=== PATIENT | male | born 1925 | race Caucasian/White ===

== ENCOUNTER 2017-02-25 18:55 | Inpatient (IN) ==
--- NOTE | 2017-02-25 19:03 | Emergency Department Note ---
Disposition Clinical Impression: Right facial numbness, Facial droop, Transient ischemic attack (TIA) Disposition: Admitted As Inpatient Condition: Fair General Adult HPI - General Chief complaint: ED Neuro Symptoms/Deficit Stated complaint: "stroke-like symptoms" - Related Data Home Medications Medication Instructions Recorded Confirmed Aspirin Enteric Coated [Aspirin EC] 81 mg PO DAILY 02/25/17 02/25/17 Atorvastatin Calcium [Lipitor] 20 mg PO HS 02/25/17 02/25/17 Clopidogrel [Plavix] 75 mg PO DAILY 02/25/17 02/25/17 Furosemide [Lasix] 20 mg PO DAILY 02/25/17 02/25/17 Lactose-Reduced Food [Ensure Plus] 1 bottle PO DAILY 02/25/17 02/25/17 Lisinopril [Zestril] 5 mg PO BID 02/25/17 02/25/17 Metoprolol XL (24 HR) Succ [Toprol 25 mg PO BID 02/25/17 02/25/17 XL] Allergies Allergy/AdvReac Type Severity Reaction Status Date / Time No Known Allergies Allergy Verified 02/25/17 19:06 Course Vital Signs Pulse Rate 64 02/25/17 18:57 Respiratory Rate 18 02/25/17 18:57 Blood Pressure 136/83 02/25/17 18:57 O2 Sat by Pulse Oximetry 95 02/25/17 18:57 Temperature 98.0 F 02/27/17 06:19 Pulse Rate 80 02/27/17 06:19 Respiratory Rate 16 02/27/17 06:19 Blood Pressure 162/93 02/27/17 07:07 O2 Sat by Pulse Oximetry 95 02/27/17 06:19 Oxygen Delivery Oxygen Delivery Nasal Cannula Medical Decision Making - Lab Data Result diagrams: 02/27/17 03:00 02/27/17 03:00 Lab Results 02/25/17 02/25/17 02/25/17 Range/Units 19:34 19:34 19:34 WBC 6.7 (4.3-11.1) K/mcL RBC 3.79 L (4.19-5.50) M/mcL Hgb 10.4 L (12.9-16.9) g/dL Hct 33.3 L (37.5-50.1) % MCV 87.9 (83.0-100.0) fL MCH 27.4 L (28.0-33.3) pg MCHC 31.2 L (31.6-35.5) g/dL RDW 14.6 H (11.5-14.5) % Plt Count 176 (140-400) K/mcL MPV 9.5 (9.4-12.4) fL Immature Gran % 0.6 (0-4) % Seg Neutrophils % 63.0 % Lymphocytes % 23.9 % Monocytes % 8.7 % Eosinophils % 3.5 % Basophils % 0.3 % Neutrophils # 4.2 (1.6-8.9) K/mcL Lymphocytes # 1.6 (0.6-4.6) K/mcL Monocytes # 0.6 (0.0-1.3) K/mcL Eosinophils # 0.2 (0.0-0.6) K/mcL Basophils # 0.0 (0.0-0.2) K/mcL PT 12.0 (9.4-12.1) Seconds INR 1.1 APTT 30.1 (26.0-36.0) Seconds Sodium 138 (136-145) mEq/L Potassium 4.1 (3.5-4.5) mEq/L Chloride 101 (98-109) mEq/L Carbon Dioxide 32 H (19-29) mEq/L BUN 17 (8-26) mg/dL Creatinine 1.21 (0.72-1.25) mg/dL Est GFR ( Amer) > 60 (> 60) Est GFR (Non-Af Amer) 56 L (> 60) BUN/Creatinine Ratio 14 (6-26) Glucose 97 (70-99) mg/dL Calculated Osmolality 287 (280-300) Calcium 9.2 (8.6-10.8) mg/dL Troponin I (0-0.03) ng/mL 02/25/17 Range/Units 19:34 WBC (4.3-11.1) K/mcL RBC (4.19-5.50) M/mcL Hgb (12.9-16.9) g/dL Hct (37.5-50.1) % MCV (83.0-100.0) fL MCH (28.0-33.3) pg MCHC (31.6-35.5) g/dL RDW (11.5-14.5) % Plt Count (140-400) K/mcL MPV (9.4-12.4) fL Immature Gran % (0-4) % Seg Neutrophils % % Lymphocytes % % Monocytes % % Eosinophils % % Basophils % % Neutrophils # (1.6-8.9) K/mcL Lymphocytes # (0.6-4.6) K/mcL Monocytes # (0.0-1.3) K/mcL Eosinophils # (0.0-0.6) K/mcL Basophils # (0.0-0.2) K/mcL PT (9.4-12.1) Seconds INR APTT (26.0-36.0) Seconds Sodium (136-145) mEq/L Potassium (3.5-4.5) mEq/L Chloride (98-109) mEq/L Carbon Dioxide (19-29) mEq/L BUN (8-26) mg/dL Creatinine (0.72-1.25) mg/dL Est GFR ( Amer) (> 60) Est GFR (Non-Af Amer) (> 60) BUN/Creatinine Ratio (6-26) Glucose (70-99) mg/dL Calculated Osmolality (280-300) Calcium (8.6-10.8) mg/dL Troponin I 0.01 (0-0.03) ng/mL Attestation Statement - Attestation Attestation: I examined this patient and my medical decision-making was reviewed with the Resident Physician. I agree with the documented findings, disposition and treatment plan as described except to the extent set forth below. [id number] time provided Patient presents as a transfer from the [facility]. Symptoms started approximately 90 minutes ago and have now resolved over the past 30 minutes. He denies any active symptoms. We will work this patient up for a stroke but a stroke alert was not activated due to lack of symptoms. The patient appears in no acute distress on exam
--- NOTE | 2017-02-25 19:05 | Emergency Department Note ---
Disposition Clinical Impression: Right facial numbness, Facial droop Transient ischemic attack (TIA) Qualifiers: Transient cerebral ischemia type: unspecified Qualified Code(s): G45.9 - Transient cerebral ischemic attack, unspecified Disposition: Admitted As Inpatient Condition: Fair Time of Disposition: 20:25 Neuro HPI - General Chief Complaint: ED Neuro Symptoms/Deficit Stated Complaint: "stroke-like symptoms" Time Seen by Provider: 02/25/17 19:00 Source: patient, EMS Mode of arrival: EMS Limitations: no limitations Nursing Notes Reviewed: Yes Vital Signs Reviewed: Yes - History of Present Illness HPI Narrative: 89-year-old male with history of hypertension, hyperlipidemia and CVA several years ago without any sequela presents to the ED via EMS as a transfer from the [place] urgent care concern of stroke. Last well-known 1730 by daughter. He presented to the CT urgent care at 1800 with right eye drooping and slurred speech. On arrival patient appears in no acute distress. He is alert and oriented to person place and time. No facial droop is noticed. Per EMS symptoms resolved when they arrived to the CT for transport. This was roughly at 1830. Spoke to the patient he agrees, complete resolution of symptoms. Denies any headache, chest pain, shortness of breath or any weakness. His speech is fluent without any dysarthria. He is able to smile without any noticeable droop. Strength is equal bilaterally. Sensation intact. Stroke workup initiated. Daughter is at bedside. She provides further history. He was recently admitted to the CT for nausea and vomiting. He was discharged yesterday in return today. She states she was here at [facility] in the emergency department for her daughter. When she got home she noticed the patient had a right eye droop and was slurring his speech. She states his symptoms have resolved since then. She confirms the last well-known was roughly 1700 to 1730. He had a history of a mini stroke 23 years ago. In August 2016 he had a heart attack and was transferred to [place] but no stents were placed. He continues to take a baby aspirin as well as clopidgrel. Denies any recent travel or camping. Onset of Symptoms Date: 02/25/17 Onset of Symptoms Time: 17:30 Symptom Onset Unknown: No Timing confirmed by: family member (Daughter) Location: speech, right face - Related Data Home Medications: Home Medications Medication Instructions Recorded Confirmed Aspirin Enteric Coated [Aspirin EC] 81 mg PO DAILY 02/25/17 02/25/17 Atorvastatin Calcium [Lipitor] 20 mg PO HS 02/25/17 02/25/17 Clopidogrel [Plavix] 75 mg PO DAILY 02/25/17 02/25/17 Furosemide [Lasix] 20 mg PO DAILY 02/25/17 02/25/17 Lactose-Reduced Food [Ensure Plus] 1 bottle PO DAILY 02/25/17 02/25/17 Lisinopril [Zestril] 5 mg PO BID 02/25/17 02/25/17 Metoprolol XL (24 HR) Succ [Toprol 25 mg PO BID 02/25/17 02/25/17 XL] Allergies/Adverse Reactions: Allergies Allergy/AdvReac Type Severity Reaction Status Date / Time No Known Allergies Allergy Verified 02/25/17 19:06 All systems ED: reviewed and negative except as stated. Review of Systems: As Per HPI Constitutional: Denies: fever, chills Eyes: Denies: eye discharge, vision change Cardiovascular: Denies: chest pain Respiratory: Denies: cough, dyspnea Gastrointestinal: Denies: abdominal pain, nausea, vomiting Genitourinary: Denies: urgency, dysuria Musculoskeletal: Denies: back pain, neck pain Neurological: Denies: headache, confusion Past Medical History - Past Medical History Attestation: Yes The following information was validated with the patient. Source: obtained from family Medical history: Reports: CVA, hypertension, myocardial infarction Physical Exam - General Limitations: no limitations General appearance: alert, in no apparent distress - Head Head exam: atraumatic, normocephalic, normal inspection - Eye Eye exam: Present: normal appearance, PERRL, EOMI - ENT ENT exam: normal exam, normal oropharynx, mucous membranes moist - Neck Neck exam: Present: normal inspection, full ROM, trachea midline. Absent: tenderness - Chest Chest inspection: Present: normal inspection, symmetric chest wall rise, other ( NODULE ON ANTERIOR CHEST ABOVE STERNAL NOTCH) - Respiratory Respiratory exam: Present: normal lung sounds bilaterally. Absent: respiratory distress - Cardiovascular Cardiovascular exam: Present: regular rate, normal rhythm, normal heart sounds - Abdominal Exam Abdominal exam: Present: soft, Non-Tender, normal bowel sounds. Absent: tenderness, distention, guarding, rebound, rigidity - Extremities Exam Extremities exam: Present: normal inspection, full ROM. Absent: tenderness, pedal edema - Neurological Exam Neurological exam: Present: alert, oriented X3, CN II-XII intact - Expanded Neurological Exam Patient oriented to: Present: person, place, time Speech: Present: fluid speech Cranial nerves: EOM function (II, III, IV, ): Normal, facial sensation (V): Normal, facial palsy (VII): Normal, gag reflex (IX): Normal, spinal accessory function (XI): Normal, tongue deviation (XII): Normal Motor strength - LUE: 5/5 Motor strength - RUE: 5/5 Motor strength - LLE: 5/5 Motor strength - RLE: 5/5 Upper motor neuron exam: zaki neglect: Absent bilaterally, pronator drift: Absent bilaterally Sensory exam upper extremity: light touch: Normal Sensory exam lower extremity: light touch: Normal - Psychiatric Psychiatric exam: Present: normal affect, normal mood - Skin Skin exam: Present: warm, dry, intact, normal color Course - Reevaluation(s) Reevaluation #1: No dysarthria. No facial droop notice. Good symmetrical nasolabial folds. 5 of 5 strength equal bilaterally. Neurologic exam is normal without any focal neural deficits. CT of the head does not show hemorrhage. His labs or otherwise unremarkable. He took a baby aspirin this morning. Full resolution of his symptoms. We will have him admitted for transient ischemic attack and further evaluation. Patient and family are in agreement with this plan. - Consultations Consultation #1: Spoke with on-call hospitalist bora Rob to admit for TIA, resolved slurred speech and facial droop. No further orders at this time Time: 20:25 Vital Signs Pulse Rate 64 02/25/17 18:57 Respiratory Rate 18 02/25/17 18:57 Blood Pressure 136/83 02/25/17 18:57 O2 Sat by Pulse Oximetry 95 02/25/17 18:57 Temperature 97.7 F 02/25/17 19:06 Pulse Rate 65 02/25/17 19:57 Respiratory Rate 16 02/25/17 19:57 Blood Pressure 159/96 02/25/17 19:57 O2 Sat by Pulse Oximetry 97 02/25/17 19:57 Oxygen Delivery Oxygen Delivery Room Air Neuro Symptoms/Deficit - Medical Records Medical records reviewed: Yes I reviewed the patient's medical records. - Lab Data Lab results reviewed: Yes I reviewed the patient's lab results. Result diagrams: 02/25/17 19:34 02/25/17 19:34 Lab Results 02/25/17 02/25/17 02/25/17 Range/Units 19:34 19:34 19:34 WBC 6.7 (4.3-11.1) K/mcL RBC 3.79 L (4.19-5.50) M/mcL Hgb 10.4 L (12.9-16.9) g/dL Hct 33.3 L (37.5-50.1) % MCV 87.9 (83.0-100.0) fL MCH 27.4 L (28.0-33.3) pg MCHC 31.2 L (31.6-35.5) g/dL RDW 14.6 H (11.5-14.5) % Plt Count 176 (140-400) K/mcL MPV 9.5 (9.4-12.4) fL Immature Gran % 0.6 (0-4) % Seg Neutrophils % 63.0 % Lymphocytes % 23.9 % Monocytes % 8.7 % Eosinophils % 3.5 % Basophils % 0.3 % Neutrophils # 4.2 (1.6-8.9) K/mcL Lymphocytes # 1.6 (0.6-4.6) K/mcL Monocytes # 0.6 (0.0-1.3) K/mcL Eosinophils # 0.2 (0.0-0.6) K/mcL Basophils # 0.0 (0.0-0.2) K/mcL PT 12.0 (9.4-12.1) Seconds INR 1.1 APTT 30.1 (26.0-36.0) Seconds Sodium 138 (136-145) mEq/L Potassium 4.1 (3.5-4.5) mEq/L Chloride 101 (98-109) mEq/L Carbon Dioxide 32 H (19-29) mEq/L BUN 17 (8-26) mg/dL Creatinine 1.21 (0.72-1.25) mg/dL Est GFR ( Amer) > 60 (> 60) Est GFR (Non-Af Amer) 56 L (> 60) BUN/Creatinine Ratio 14 (6-26) Glucose 97 (70-99) mg/dL Calculated Osmolality 287 (280-300) Calcium 9.2 (8.6-10.8) mg/dL Troponin I (0-0.03) ng/mL 02/25/17 Range/Units 19:34 WBC (4.3-11.1) K/mcL RBC (4.19-5.50) M/mcL Hgb (12.9-16.9) g/dL Hct (37.5-50.1) % MCV (83.0-100.0) fL MCH (28.0-33.3) pg MCHC (31.6-35.5) g/dL RDW (11.5-14.5) % Plt Count (140-400) K/mcL MPV (9.4-12.4) fL Immature Gran % (0-4) % Seg Neutrophils % % Lymphocytes % % Monocytes % % Eosinophils % % Basophils % % Neutrophils # (1.6-8.9) K/mcL Lymphocytes # (0.6-4.6) K/mcL Monocytes # (0.0-1.3) K/mcL Eosinophils # (0.0-0.6) K/mcL Basophils # (0.0-0.2) K/mcL PT (9.4-12.1) Seconds INR APTT (26.0-36.0) Seconds Sodium (136-145) mEq/L Potassium (3.5-4.5) mEq/L Chloride (98-109) mEq/L Carbon Dioxide (19-29) mEq/L BUN (8-26) mg/dL Creatinine (0.72-1.25) mg/dL Est GFR ( Amer) (> 60) Est GFR (Non-Af Amer) (> 60) BUN/Creatinine Ratio (6-26) Glucose (70-99) mg/dL Calculated Osmolality (280-300) Calcium (8.6-10.8) mg/dL Troponin I 0.01 (0-0.03) ng/mL - Radiology Data Radiology results reviewed: Yes I reviewed the patient's radiology results. Head CT 02/25/17 19:03 IMPRESSION: No acute intracranial abnormality. D/ / Fozia Rodriguez Cha, MD / Fozia Rodriguez Cha, MD Interpreting Provider: Fozia Rodriguez Cha, MD - EKG Data EKG attestation: Yes I reviewed and interpreted this EKG. EKG results narrative: EKG performed 1905 sinus rhythm with PVC [address] elevations or depression, Q waves in V1/2 and T wave inversion in the lateral leads. Intervals are within normal limits. Compared to prior EKG performed 12/13/2010 which shows sinus rhythm with a left axis deviation. Compared to a EKG performed at the CT 02/25/2017 at 1748 shows sinus bradycardia with similar T wave inversion. There are no acute ischemic changes from this. TPA Checklist - LKW: 3-4.5 hrs Add. Warnings/Precautions Patient/family understanding: The patient/family members have been counseled and understood the risk, benefit , and alternatives of treatment.
[2017-02-25 19:41] LABS: Basophils % 0.3 %; Eosinophils # 0.2 K/mcL (0.0-0.6); Eosinophils % 3.5 %; Hematocrit 33.3 % (37.5-50.1); Hemoglobin 10.4 g/dL (12.9-16.9); Immature Granulocytes % 0.6 % (0-4); Lymphocytes # 1.6 K/mcL (0.6-4.6); Lymphocytes % 23.9 %; Mean Corpuscular HGB Conc 31.2 g/dL (31.6-35.5); Mean Corpuscular Hemoglobin 27.4 pg (28.0-33.3); Mean Corpuscular Volume 87.9 fL (83.0-100.0); Mean Platelet Volume 9.5 fL (9.4-12.4); Monocytes # 0.6 K/mcL (0.0-1.3); Monocytes % 8.7 %; Neutrophils # 4.2 K/mcL (1.6-8.9); Platelet Count 176 K/mcL (140-400); Red Blood Count 3.79 M/mcL (4.19-5.50); Red Cell Distribution Width 14.6 % (11.5-14.5)
[2017-02-25 19:53] LABS: BUN/Creatinine Ratio 14 (6-26); Blood Urea Nitrogen 17 mg/dL (8-26); Calcium 9.2 mg/dL (8.6-10.8); Carbon Dioxide 32 mEq/L (19-29); Chloride 101 mEq/L (98-109); Glucose 97 mg/dL (70-99); Osmolality,Calculated 287 (280-300); Potassium 4.1 mEq/L (3.5-4.5); Sodium 138 mEq/L (136-145); eGFR For African Americans > 60 (> 60); eGFR For Non-African Americans 56 (> 60)
[2017-02-25 20:02] LABS: INR 1.1
[2017-02-25 20:05] LABS: Activated Partial Thrombo Time 30.1 Seconds (26.0-36.0)
[2017-02-25] MEDS ORDERED: Acetaminophen 325 MG TABLET PO PRN (20:58)
[2017-02-25] MEDS ORDERED: Naloxone 0.4 MG/ML INJ IVP PRN (20:58)
[2017-02-25] MEDS ORDERED: Metoprolol XL (24 HR) Succ 25 MG TAB.ER.24H PO SCH (21:00)
--- NOTE | 2017-02-25 21:18 | Internal Med History&Physical ---
<Renteria,Jada J - Last Filed: 02/25/17 21:19> Date of Encounter: 02/25/17 Time of Encounter: 21:13 Assessment and Plan (1) Transient ischemic attack (TIA) Current visit: Yes Status: Acute suspected. HX remote CVA with no residual effects. Now with slurred speech and right facial droop on day o admission. Head CT negative. Sx's improved but present on admission.Brain MRI, carotids, echo, lipid panel, Hgb A1c pending. Cont home ASA, plavix. Consult Neurology if needed Qualifiers: Transient cerebral ischemia type: unspecified Qualified Code(s): G45.9 - Transient cerebral ischemic attack, unspecified (2) CAD (coronary artery disease) Current visit: Yes Status: Acute hx [place] 07/2016, no stents. Asymptomatic, denies CP. Cont home ASA, Plavix, statin , BB Qualifiers: Coronary Disease-Associated Artery/Lesion type: torres martinez artery [place] vs. transplanted heart: torres martinez heart Associated angina: without angina Qualified Code(s): I25.10 - Atherosclerotic heart disease of torres martinez coronary artery without angina pectoris (3) Essential hypertension Current visit: Yes Status: Acute per hx. BP variable but controlled. Cont home BP medications. Monitor BP and titrate PRN (4) DVT prophylaxis Current visit: Yes Status: Acute [facility] Internal Medicine - H&P: HPI Chief complaint: right eye droop and slurred speech Admitted From: Home Plans for Post Hospital Care: Home History of present illness: Mr. Adame is a 89 year old male with PMH CAD, HTN and remote CVA who presented to [facility] on 02/25/2017 from [place] with concern for CVA. He was admitted for further work-up and treatment. Information obtained from chart review and patient report. Daughter not at bedside. Per chart review, the daughter noticed noticed the patient had a right eye droop and was slurring his speech; sx's started around 1730. Sx's improved prior to arrival. On my exam, the patient reports "a little blurred vision" and feel right side of face doesn't feel right. No headache, no numbness/tingling. No CP, no SOB Past Med Surg Social Fam HX - Past Medical History Medical history: CVA, hypertension, myocardial infarction Psychiatric history: anxiety - Social History Smoking Status: Former smoker Smokeless Tobacco Status: No Alcohol use: none Drug use: none Internal Medicine - H&P: Meds Aspirin Enteric Coated [Aspirin EC] 81 mg PO DAILY 02/25/17 [History] Atorvastatin Calcium [Lipitor] 20 mg PO HS 02/25/17 [History] Clopidogrel [Plavix] 75 mg PO DAILY 02/25/17 [History] Furosemide [Lasix] 20 mg PO DAILY 02/25/17 [History] Lactose-Reduced Food [Ensure Plus] 1 bottle PO DAILY 02/25/17 [History] Lisinopril [Zestril] 5 mg PO BID 02/25/17 [History] Metoprolol XL (24 HR) Succ [Toprol XL] 25 mg PO BID 02/25/17 [History] Allergies No Known Allergies Allergy (Verified 02/25/17 19:06) All Systems PM: A 10-system review of systems was performed and is negative for pertinent findings except as documented above in the HPI. - Constitutional Constitutional: no chills, no fever(s), no night sweats - EENT Eyes: blurry vision, no change in vision, no discharge, no pain, no photophobia Ears: no ear discharge, no ear pain, no tinnitus Nose, mouth and throat: no dysphagia, no nasal discharge, no neck pain, no sore throat - Cardiovascular Cardiovascular ROS IM: no chest pain, no diaphoresis, no dyspnea, no lightheadedness, no palpitations, no syncope - Respiratory Respiratory: no cough, no dyspnea, no wheezing, no excessive phlegm production - Gastrointestinal Gastrointestinal: no abdominal pain, no diarrhea, no hematemesis, no hematochezia, no melena, no nausea, no vomiting - Musculoskeletal Musculoskeletal ROS IM: no numbness, no tingling - Integumentary Integumentary IM: no rash, no unusual bruising - Neurological Neurological ROS: abnormal speech, dizziness, no confusion, no convulsions, no focal weakness, no numbness, no tingling, no tremor(s) - Hematologic/Lymphatic Hematologic/Lymphatic: no easy bruising - Constitutional Vitals: Temp Pulse Resp BP Pulse Ox 97.7 F 68 18 163/62 97 02/25/17 19:06 02/25/17 19:48 02/25/17 19:48 02/25/17 19:48 02/25/17 19:48 General appearance: Present: A&O X 3, no acute distress - Head Head exam: Present: atraumatic, normocephalic - Eye Eye exam: Present: PERRL, conjuntiva pink, sclera anicteric Pupils: Present: PERRL - Neck Neck exam general surgery: Present: supple, trachea midline. Absent: lymphadenopathy - Respiratory Respiratory exam: Present: CTAB. Absent: accessory muscle use, rales, rhonchi, wheezes - Cardiovascular Cardiovascular exam: Present: RRR, +S1, +S2. Absent: diastolic murmur, gallop, rubs, systolic murmur - GI/Abdominal GI/Abdominal exam: Present: normal bowel sounds, soft, no peritoneal signs. Absent: distended, tenderness - Extremities Exam Extremities exam: Present: warm, radial pulses palpable and symetrical. Absent : calf tenderness, cyanotic, pedal edema - Neurological Exam Neurological exam: Present: CN II-XII intact, oriented X3, no focal deficits, facial droop. Absent: pronater drift, speech deficit Additional comments: right facial droop - Skin Skin exam: Present: dry, intact Internal Med - H&P Results - Labs CBC & Chem 7: 02/25/17 19:34 02/25/17 19:34 Labs: Short CBC 02/25/17 Range/Units 19:34 WBC 6.7 (4.3-11.1) K/mcL Hgb 10.4 L (12.9-16.9) g/dL Hct 33.3 L (37.5-50.1) % Plt Count 176 (140-400) K/mcL Neutrophils # 4.2 (1.6-8.9) K/mcL BMP 02/25/17 19:34 Sodium 138 Potassium 4.1 Chloride 101 Carbon Dioxide 32 H BUN 17 Creatinine 1.21 Glucose 97 Calcium 9.2 Cardiac Enzymes 02/25/17 Range/Units 19:34 Troponin I 0.01 (0-0.03) ng/mL - Impressions ITS Impressions Head CT 02/25/17 19:03 IMPRESSION: No acute intracranial abnormality. D/ / Fozia Rodriguez Cha, MD / Fozia Rodriguez Cha, MD Interpreting Provider: Fozia Rodriguez Cha, MD <Kaiser Steele - Last Filed: 02/26/17 03:39> Date of Encounter: 02/25/17 Internal Medicine - H&P: HPI History of present illness: Mr. Adame is a 89 year old male Past Med Surg Social Fam HX - Past Medical History Source: patient, old records reviewed - Past Surgical History Surgical History: hip replacement (right ) - Additional Family History Additional family history: patient was raised by his grandparents so he does not know of his parents medical conditions if any, he denies any family of stroke to his knowledge All Systems PM: A 10-system review of systems was performed and is negative for pertinent findings except as documented above in the HPI. - Constitutional Vitals: Temp Pulse Resp BP Pulse Ox 97.7 F 68 16 140/68 95 02/25/17 23:25 02/25/17 23:25 02/25/17 23:25 02/25/17 23:25 02/25/17 23:25 Internal Med - H&P Results - Labs CBC & Chem 7: 02/25/17 19:34 02/25/17 19:34 - Attending Attestation I personally interviewed and examined this patient and my medical decision- making was reviewed with the Advanced Nurse Practitioner. I agree with the documented findings, disposition and treatment plan as described. Kaiser Steele MD, MPH Hospitalist
[2017-02-26 03:53] LABS: Hematocrit 32.1 % (37.5-50.1); Hemoglobin 10.1 g/dL (12.9-16.9); Mean Corpuscular HGB Conc 31.5 g/dL (31.6-35.5); Mean Corpuscular Hemoglobin 27.4 pg (28.0-33.3); Platelet Count 165 K/mcL (140-400); Red Blood Count 3.69 M/mcL (4.19-5.50); Red Cell Distribution Width 14.5 % (11.5-14.5)
[2017-02-26 04:15] LABS: Alanine Aminotransferase 8 Units/L (0-55); Albumin/Globulin Ratio 0.9 (1.1-2.2); Alkaline Phosphatase 108 Units/L (38-126); Aspartate Amino Transferase 13 Units/L (5-34); BUN/Creatinine Ratio 13 (6-26); Bilirubin,Total 0.4 mg/dL (0.2-1.2); Blood Urea Nitrogen 16 mg/dL (8-26); Calcium 8.8 mg/dL (8.6-10.8); Carbon Dioxide 30 mEq/L (19-29); Chloride 104 mEq/L (98-109); Chol/HDL Ratio 2.7 (0-4.9); Cholesterol 122 mg/dL (< 200); Globulin 3.2 g/dL (2.4-3.5); Glucose 92 mg/dL (70-99); HDL Cholesterol 46 mg/dL (40-59); LDL Cholesterol,Calculated 66 mg/dL (0-99); Osmolality,Calculated 291 (280-300); Potassium 4.1 mEq/L (3.5-4.5); Sodium 140 mEq/L (136-145); Total Protein 6.2 g/dL (6.0-8.3); Triglycerides 52 mg/dL (< 150); eGFR For African Americans > 60 (> 60); eGFR For Non-African Americans 58 (> 60)
[2017-02-26] MEDS ORDERED: *HR* Enoxaparin 30 MG/0.3 ML SYRINGE SQ SCH (06:00)
[2017-02-26 06:01] LABS: Hemoglobin A1C 5.4 %
[2017-02-26] MEDS: Metoprolol XL (24 HR) Succ 25 MG TAB.ER.24H PO SCH (09:54)
[2017-02-26] MEDS: Furosemide 20 MG TABLET PO SCH (09:54)
[2017-02-26] MEDS: Aspirin Enteric Coated 81 MG Tablet PO SCH (09:54)
--- NOTE | 2017-02-26 16:11 | Neurology - Consult Note ---
Date of Encounter: 02/26/17 Time of Encounter: 16:07 Assessment and Plan (1) Brainstem infarct, acute Current Visit: Yes Status: Acute The MRI scan of the brain reveals an acute infarction in the right medulla. This is more than likely a small vessel event associated with his history of hypertension. I am not convinced that the right internal carotid artery stenosis which is 60-79% is at fault because he did not have symptoms localizing to the right cerebral hemisphere. The carotid Doppler study did not reveal some nonstenotic plaquing of the left common carotid artery at 40-59%. He states that he was not taking aspirin daily prior to this event. Echocardiogram reveals severe left ventricular hypertrophy. For completeness in his case I would simply advocate a CTA scan of the neck to be certain that the carotid Doppler study is accurate. Otherwise I would recommend statins, as well as antiplatelet therapy and strict management of his risk factors. History of Present Illness HPI: Mr. Adame is a 89 year old male with a prior known history of CVA hypertension and heart disease being seen for neurologic consultation secondary to symptoms of transient ischemic attack/stroke. Apparently this gentleman was thought in to the [facility] by his daughter as she was concerned of slurred speech old right facial droop. Patient states that he did not have weakness of the right arm but had a slight bit of weakness of the right leg and his balance was slightly off. He currently feels that the symptoms are completely resolved. He has had several tests since admission including an MRI scan of the brain revealed an acute right medullary infarct. It also revealed significant matter chronic ischemic change. He has also had a carotid Doppler revealed 60-79% stenosis of the right internal carotid artery, and possibly 40- 59% stenosis of the left common carotid artery. Echocardiogram reveals severe left ventricular hypertrophy and diastolic dysfunction. Patient currently sitting up in his bed watching television in no acute distress. Past Med Surg Social Fam HX - Past Medical History Medical history: CVA, hypertension, myocardial infarction Psychiatric history: anxiety - Past Surgical History Surgical History: hip replacement (right ) - Social History Smoking Status: Former smoker Smokeless Tobacco Status: No Alcohol use: none Drug use: none Medications and Allergies Aspirin Enteric Coated [Aspirin EC] 81 mg PO DAILY 02/25/17 [History] Atorvastatin Calcium [Lipitor] 20 mg PO HS 02/25/17 [History] Clopidogrel [Plavix] 75 mg PO DAILY 02/25/17 [History] Furosemide [Lasix] 20 mg PO DAILY 02/25/17 [History] Lactose-Reduced Food [Ensure Plus] 1 bottle PO DAILY 02/25/17 [History] Lisinopril [Zestril] 5 mg PO BID 02/25/17 [History] Metoprolol XL (24 HR) Succ [Toprol XL] 25 mg PO BID 02/25/17 [History] Allergies No Known Allergies Allergy (Verified 02/25/17 19:06) All Systems: A 10-system review of systems was performed and is negative for pertinent findings except as documented above in the HPI. Review of Systems: 10 point review of systems is consistent with a history of present illness and is otherwise negative. Physical Examination - Vital Signs Vital Signs: Initial Vital Signs Pulse Resp BP Pulse Ox 64 18 136/83 95 02/25/17 18:57 02/25/17 18:57 02/25/17 18:57 02/25/17 18:57 - Exam Exam: Neurologic examination finds the following. For cerebral functions he is awake and alert and oriented 1. He does have some motor impersistence, he does have a glabellar and hooking grasp frontal releasing signs. He is able to give a partial history however is not able to give exact details. He does fit the dementia profile. - Neurologic Detailed motor examination: full strength in all major muscle groups Detailed sensory examination: intact Reflex and gait examination: intact Reflexes: Biceps: 1+, Triceps: 1+, Brachioradialis: 1+, Patella: 0, Achilles: 0 Mental Status Examination: awake, alert, oriented to person, demented Cranial nerve examination: PERRL, EOMI, visual kwok intact, corneal reflexes brisk symmetrically, sensory to face intact, mastication intact, no facial asymmetry is present, no dysarthria, soft palate elevates bilaterally upon phonation, tongue protrudes midline Cerebellar examination: no dysmetria, performs finger to nose and heel to cooney symmetrically without ataxia, no gait ataxia, no truncal ataxia, no difficulty with rapid alternating movements Results - Laboratory Findings CBC and BMP: 02/26/17 03:09 02/26/17 03:09 Abnormal lab findings: Abnormal lab results RBC 3.69 M/mcL (4.19-5.50) L 02/26/17 03:09 Hgb 10.1 g/dL (12.9-16.9) L 02/26/17 03:09 Hct 32.1 % (37.5-50.1) L 02/26/17 03:09 MCH 27.4 pg (28.0-33.3) L 02/26/17 03:09 MCHC 31.5 g/dL (31.6-35.5) L 02/26/17 03:09 Carbon Dioxide 30 mEq/L (19-29) H 02/26/17 03:09 Est GFR (Non-Af Amer) 58 (> 60) L 02/26/17 03:09 Albumin 3.0 g/dL (3.5-5.0) L 02/26/17 03:09 Albumin/Globulin Ratio 0.9 (1.1-2.2) L 02/26/17 03:09 Consult Discharge Plan - Plan [facility]: [facility] [Primary Care Provider] -
--- NOTE | 2017-02-26 17:31 | Internal Med Progress Note ---
Date of Encounter: 02/26/17 Time of Encounter: 17:29 - Assessment and plan (1) CVA (cerebral vascular accident) Current Visit: Yes Status: Acute Qualifiers: Qualified Code(s): I63.9 - Cerebral infarction, unspecified (2) Essential hypertension Current Visit: Yes Status: Acute (3) DVT prophylaxis Current Visit: Yes Status: Acute - Subjective Interval history: Mr. Kalpesh Adame is an 89-year-old male presented with an acute onset right facial droop is difficulty and there right upper eyelid droop. His speech and facial droop has improved but still has drooping of right upper eyelid which I am not sure if it is new or old. In any case The MRI scan of the brain reveals an acute infarction in the right medulla. This is more than likely a small vessel event associated with his history of hypertension. Therefore patient is a started on aspirin as it seems like he does not take aspirin on a daily basis. Lipitor was also added. Ultrasound of carotids showed moderate narrowing of the right side in the range of 50-70% therefore CTA has been ordered. Neurology is following the patient. Echocardiogram showed good LV systolic function with EF above 55% LVH and diastolic dysfunction but no significant valvular abnormality. PTOT consulted. Once workup is complete patient will be discharged. Discussed the plan with family. - Constitutional Vitals: Temp Pulse Resp BP Pulse Ox 97.5 F L 70 29 150/66 98 02/26/17 15:52 02/26/17 15:54 02/26/17 15:54 02/26/17 15:54 02/26/17 15:52 General appearance: Present: A&O X 3, no acute distress - Head Head exam: Present: atraumatic, normocephalic - Eye Eye exam: Present: PERRL, conjuntiva pink, sclera anicteric Pupils: Present: PERRL - Neck Neck exam general surgery: Present: supple, trachea midline. Absent: lymphadenopathy - Respiratory Respiratory exam: Present: CTAB. Absent: accessory muscle use, rales, rhonchi, wheezes - Cardiovascular Cardiovascular exam: Present: RRR, +S1, +S2. Absent: diastolic murmur, gallop, rubs, systolic murmur - GI/Abdominal GI/Abdominal exam: Present: normal bowel sounds, soft, no peritoneal signs. Absent: distended, tenderness - Extremities Exam Extremities exam: Present: warm, radial pulses palpable and symetrical. Absent : calf tenderness, cyanotic, pedal edema - Neurological Exam Neurological exam: Present: CN II-XII intact, oriented X3, no focal deficits. Absent: pronater drift, facial droop, speech deficit Additional comments: Eyelid droop but otherwise no pronator drift and gait deferred - Skin Skin exam: Present: dry, intact Internal Medicine: Result - Labs CBC & Chem 7: 02/26/17 03:09 02/26/17 03:09 Labs: Short CBC 02/26/17 Range/Units 03:09 WBC 6.6 (4.3-11.1) K/mcL Hgb 10.1 L (12.9-16.9) g/dL Hct 32.1 L (37.5-50.1) % Plt Count 165 (140-400) K/mcL BMP 02/26/17 03:09 Sodium 140 Potassium 4.1 Chloride 104 Carbon Dioxide 30 H BUN 16 Creatinine 1.19 Glucose 92 Calcium 8.8 Liver Function 02/26/17 Range/Units 03:09 Total Bilirubin 0.4 (0.2-1.2) mg/dL AST 13 (5-34) Units/L ALT 8 (0-55) Units/L Alkaline Phosphatase 108 (38-126) Units/L Albumin 3.0 L (3.5-5.0) g/dL - ABG Interpretation ABG results: PT/INR, D-dimer PT 12.0 Seconds (9.4-12.1) 02/25/17 19:34 - Impressions Impressions Echocardiogram 02/26/17 21:00 Impressions: LVEF 50-55%. Mild left ventricular diastolic dysfunction with elevated filling pressures. Severe concentric left ventricular hypertrophy. Normal right ventricular size and function. Mild mitral regurgitation. Mild tricuspid regurgitation. No pulmonary hypertension. No PFO with saline contrast injection. Left Ventricular Wall Motion: Rest Echo Findings All wall segments showed normal motion. Findings: Study Quality * Technically adequate exam. ECG Findings * Sinus bradycardia. Left Ventricle * Severe concentric left ventricular hypertrophy. No LVOT obstruction. ROSY of the mitral valve is not appreciated. * Mild left ventricular diastolic dysfunction with elevated filling pressures. * LVEF 50-55%. Aorta * Normally sized aortic root. Aortic Valve * No aortic regurgitation. * Trileaflet aortic valve. * Mildly calcified aortic valve leaflets. * No aortic stenosis. Mitral Valve * Normal mitral valve structure. * No mitral stenosis. * Mild mitral regurgitation. Tricuspid Valve * Normal tricuspid valve structure. * Mild tricuspid regurgitation. * Estimated RA pressure is 8 mmHg. * Estimated RVSP is 32 mmHg. * No pulmonary hypertension. Pulmonic Valve * Pulmonic valve is not well visualized. * No pulmonic stenosis. * No pulmonic regurgitation. Pulmonary Artery * Pulmonary artery not well visualized. Right Ventricle * Normal right ventricular structure and function. Left Atrium * Normal left atrial size. Right Atrium * Normal right atrial size. Interatrial Septum * No evidence of PFO by color Doppler. * No evidence of PFO with agitated saline contrast. Pericardium * There is no pericardial effusion present. IVC * The IVC is not dilated. * < 50% respiratory change. Consult Discharge Plan - Plan [facility]errals: [facility] [Primary Care Provider] -
[2017-02-27 03:42] LABS: Basophils % 0.3 %; Eosinophils # 0.3 K/mcL (0.0-0.6); Eosinophils % 3.6 %; Hematocrit 31.1 % (37.5-50.1); Hemoglobin 9.9 g/dL (12.9-16.9); Immature Granulocytes % 0.4 % (0-4); Lymphocytes # 1.9 K/mcL (0.6-4.6); Mean Corpuscular HGB Conc 31.8 g/dL (31.6-35.5); Mean Corpuscular Hemoglobin 27.5 pg (28.0-33.3); Mean Corpuscular Volume 86.4 fL (83.0-100.0); Mean Platelet Volume 10.2 fL (9.4-12.4); Monocytes # 0.6 K/mcL (0.0-1.3); Monocytes % 8.9 %; Neutrophils # 4.4 K/mcL (1.6-8.9); Platelet Count 178 K/mcL (140-400); Red Cell Distribution Width 14.4 % (11.5-14.5); Segmented Neutrophils % 60.8 %
[2017-02-27 03:59] LABS: Alanine Aminotransferase 8 Units/L (0-55); Albumin 3.2 g/dL (3.5-5.0); Alkaline Phosphatase 112 Units/L (38-126); Aspartate Amino Transferase 13 Units/L (5-34); BUN/Creatinine Ratio 21 (6-26); Bilirubin,Total 0.4 mg/dL (0.2-1.2); Blood Urea Nitrogen 24 mg/dL (8-26); Carbon Dioxide 25 mEq/L (19-29); Chloride 102 mEq/L (98-109); Globulin 3.2 g/dL (2.4-3.5); Glucose 96 mg/dL (70-99); Osmolality,Calculated 288 (280-300); Potassium 3.9 mEq/L (3.5-4.5); Sodium 137 mEq/L (136-145); Total Protein 6.4 g/dL (6.0-8.3); eGFR For African Americans > 60 (> 60); eGFR For Non-African Americans > 60 (> 60)
[2017-02-27] MEDS ORDERED: *HR* Enoxaparin 40 MG/0.4 ML SYRINGE SQ SCH (06:00)
[2017-02-27] MEDS ORDERED: *HR* Labetalol 20 MG/4 ML SYRINGE IVP PRN (06:10)
--- NOTE | 2017-02-27 07:46 | Carotid Imaging Report ---
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 Findings: Left carotid system has nonstenotic plaque. Recommendations: After imaging the patient returned to their room. Test completed on 02/26/2017 at 9:10:00 am. Findings Carotid Duplex: Right: The right proximal common carotid artery has a PSV of 52 cm/s and a EDV of 14 cm/s. There is nonstenotic plaque in the right mid common carotid artery with a PSV of 85 cm/s and a EDV of 21 cm/s. There is irregular calcified plaque. There is nonstenotic plaque in the right distal common carotid artery with a PSV of 70 cm/s and a EDV of 14 cm/s. There is irregular calcified plaque. There is nonstenotic plaque in the right bifurcation with a PSV of 46 cm/s and a EDV of 14 cm/s. There is irregular calcified plaque. There is 60-79% stenosis in the right proximal internal carotid artery with a PSV of 184 cm/s and a EDV of 53 cm/s. There is irregular calcified plaque. The right mid internal carotid artery has a PSV of 107 cm/s and a EDV of 24 cm/s. The right distal internal carotid artery has a PSV of 71 cm/s and a EDV of 20 cm/s. The right eca has turbulent flow with plaque with a PSV of 214 cm/s and a EDV of 27 cm/s. There is highly irregular calcified plaque. The right vertebral artery has a PSV of 38 cm/s and a EDV of 10 cm/s. Left: The left proximal common carotid artery has a PSV of 92 cm/s and a EDV of 21 cm/s. There is 40-59% stenosis in the left mid common carotid artery with a PSV of 131 cm/s and a EDV of 18 cm/s. There is irregular calcified plaque. There is nonstenotic plaque in the left distal common carotid artery with a PSV of 78 cm/s and a EDV of 14 cm/s. There is irregular calcified plaque. There is 40-59% stenosis in the left bifurcation with a PSV of 131 cm/s and a EDV of 21 cm/s. There is highly irregular calcified plaque. There is nonstenotic plaque in the left proximal internal carotid artery with a PSV of 81 cm/s and a EDV of 23 cm/s. There is calcified plaque. The left mid internal carotid artery has a PSV of 75 cm/s and a EDV of 23 cm/s. The left distal internal carotid artery has a PSV of 73 cm/s and a EDV of 23 cm/s. The left eca has turbulent flow with plaque with a PSV of 165 cm/s. There is calcified plaque. The left vertebral artery has a PSV of 34 cm/s and a EDV of 6 cm/s. Prior Study: No prior study available for comparison. Carotid Results Right PSV EDV Assessment Proximal CCA 52 14 Mid CCA 85 21 Distal CCA 70 14 Bifurcation 46 14 Proximal ICA 184 53 Mid ICA 107 24 Distal ICA 71 20 ECA 214 27 Vertebral Artery 38 10 Left PSV EDV Assessment Proximal CCA 92 21 Mid CCA 131 18 Distal CCA 78 14 Bifurcation 131 21 Proximal ICA 81 23 Mid ICA 75 23 Distal ICA 73 23 ECA 165 0 Vertebral Artery 34 6 Ratio's Right ICA/CCA Ratio: 2.16 ICA/CCA Values: 184/85 Left ICA/CCA Ratio: 0.61 ICA/CCA Values: 81/131 Updated by Donnie Monroy MD, FACS on 02/26/2017 5:42:49 PM Donnie Monroy MD electronically signed on 02/26/2017 5:43:05 PM with status of Final
--- NOTE | 2017-02-27 07:48 | Electrocardiograph Report ---
[address] [place], [place] [address] Test Date: 2017-02-25 Pat Name: Kalpesh Adame Department: 102 Room: 2NE23 Gender: M Systems Lead: Am : 1925 Requested By: Roderick Boles Order Number: [id number] Reading MD: Tom Aldana MD Measurements Intervals [place] Rate: 65 P: 64 MI: 177 QRS: -7 QRSD: 109 T: 78 QT: 430 QTc: 441 Interpretive Statements SINUS RHYTHM WITH FREQUENT SUPRAVENTRICULAR PREMATURE COMPLEXES LEFT ATRIAL ENLARGEMENT INCOMPLETE RIGHT BUNDLE BRANCH BLOCK LATERAL ISCHEMIA Electronically Signed On 02-26-2017 19:50:01 EDT by Tom Aldana MD
[2017-02-27] MEDS: Furosemide 20 MG TABLET PO SCH (08:50)
[2017-02-27] MEDS: Aspirin Enteric Coated 81 MG Tablet PO SCH (08:50)
[2017-02-27] MEDS: Metoprolol XL (24 HR) Succ 25 MG TAB.ER.24H PO SCH (08:51)
--- NOTE | 2017-02-27 11:36 | Electrocardiograph Report ---
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
--- NOTE | 2017-02-27 15:58 | Discharge Summary ---
Date of Encounter: 02/27/17 Time of Encounter: 15:55 - Discharge Diagnosis (1) CVA (cerebral vascular accident) Priority: Primary Status: Acute Qualifiers: Qualified Code(s): I63.9 - Cerebral infarction, unspecified (2) Essential hypertension Priority: Secondary Status: Acute (3) DVT prophylaxis Priority: Secondary Status: Acute (4) Dyslipidemia Priority: Secondary Status: Acute - Discharge Medications Home Medications: Aspirin Enteric Coated [Aspirin EC] 81 mg PO DAILY 02/25/17 [History] Atorvastatin Calcium [Lipitor] 20 mg PO HS 02/25/17 [History] Clopidogrel [Plavix] 75 mg PO DAILY 02/25/17 [History] Furosemide [Lasix] 20 mg PO DAILY 02/25/17 [History] Lactose-Reduced Food [Ensure Plus] 1 bottle PO DAILY 02/25/17 [History] Lisinopril [Zestril] 5 mg PO BID 02/25/17 [History] Metoprolol XL (24 HR) Succ [Toprol Xl] 25 mg PO BID 02/25/17 [History] Acetaminophen [Tylenol] 650 mg PO Q6HR PRN tab 02/27/17 [Rx] Allergies/Adverse Reactions: Allergies No Known Allergies Allergy (Verified 02/25/17 19:06) Procedures/tests Complete & Pending: Procedures Performed prior 72 hours Category Date Time Status CT angio neck [CT] Routine Cat Scan 02/26/17 16:22 Completed ECG 12 lead ECG [ECG] Routine Y 02/25/17 19:05 Completed ECG 12 lead ECG [ECG] Routine Y 02/26/17 19:46 Completed Date of admission: 02/25/17 21:10 [facility] physician[facility] Consults: 02/26/17 03:40 Consult to Neurology [CONS] Routine Consulting Provider: Neurology [facility] Reason for Consult: pls assist in managing this pt with acute stroke, thanks Call Completed: No 02/26/17 11:29 Consult to Occupational Therapy [CONS] Routine Comment: Evaluate, develop and implement POC Reason for Consult: cva admit, asess home needs Consult to Physical Therapy [CONS] Routine Comment: Evaluate, develop and implement POC Reason for Consult: cva admission, assess home needs Discharging clinician: Roderick Boles Anticipated date of discharge: 02/27/17 - Patient Status Disposition: Home, Self-Care Condition: Fair Functional capacity at discharge: independent ambulation Overall status at discharge: patient is progressing back to baseline - Discharge Instructions Follow Up With: RONIT,PCP [Primary Care Provider] - 03/03/17 12:30 pm - Diet and Activity Activity: as per physical therapy Diet: advance to your usual diet Hospital course: Mr. Kalpesh Adame is an 89-year-old male presented with an acute onset right facial droop is difficulty and there right upper eyelid droop. His speech and facial droop has improved but still has drooping of right upper eyelid which I am not sure if it is new or old. In any case The MRI scan of the brain reveals an acute infarction in the right medulla. This is more than likely a small vessel event associated with his history of hypertension. Therefore patient is a started on aspirin as it seems like he does not take aspirin on a daily basis. Lipitor was also added. Ultrasound of carotids showed moderate narrowing of the right side in the range of 50-70% therefore CTA and it showed less than 50% blockage on both sides.. Echocardiogram showed good LV systolic function with EF above 55% LVH and diastolic dysfunction but no significant valvular abnormality. PTOT consulted. Neurology is following the patient.. Discussed the plan with family. - Time Spent with Patient Total time spent providing and/or coordinating discharge services: Greater than 30 minutes - Constitutional Vitals: Temp Pulse Resp BP Pulse Ox 98.0 F 80 16 162/93 95 02/27/17 06:19 02/27/17 06:19 02/27/17 06:19 02/27/17 07:07 02/27/17 06:19 General appearance: Present: A&O X 3, no acute distress - Head Head exam: Present: atraumatic, normocephalic - Eye Eye exam: Present: PERRL, conjuntiva pink, sclera anicteric Pupils: Present: PERRL - Neck Neck exam general surgery: Present: supple, trachea midline. Absent: lymphadenopathy - Respiratory Respiratory exam: Present: CTAB. Absent: accessory muscle use, rales, rhonchi, wheezes - Cardiovascular Cardiovascular exam: Present: RRR, +S1, +S2. Absent: diastolic murmur, gallop, rubs, systolic murmur - GI/Abdominal GI/Abdominal exam: Present: normal bowel sounds, soft, no peritoneal signs. Absent: distended, tenderness - Extremities Exam Extremities exam: Present: warm, radial pulses palpable and symetrical. Absent : calf tenderness, cyanotic, pedal edema - Neurological Exam Neurological exam: Present: CN II-XII intact, oriented X3, no focal deficits. Absent: pronater drift, facial droop, speech deficit Additional comments: Patient uses a cane for ambulation even before his stroke. No focal deficit appreciated. Only drooping very mild though a flight upper eyelid. His speech function seems back to normal. - Skin Skin exam: Present: dry, intact
[2017-02-27 16:01] VITALS: BP 142/68
== END 2017-02-27 17:53 | disposition home or self-care (01) | DRG 65 ==
LOC: EMEROO 18:55 → 2NENU 21:10
PROVIDERS: ADMIT Internal Medicine; ATTEND Internal Medicine